=== PATIENT | male | born 1995 | race Caucasian/White ===

== ENCOUNTER 2018-12-07 12:21 | Emergency (ER) | payer OTHER ==
[~2018-12-07] VITALS: Ht 177.8 cm; Wt 63.5 kg
[2018-12-07] MEDS ORDERED: SERT100T PO (12:39)
[2018-12-07] MEDS ORDERED: DIVA500T2 PO (12:39)
[2018-12-07] MEDS ORDERED: IV NORMAL SALINE 1000ML BAG 1,000 ML IV ONE (12:45)
--- NOTE | 2018-12-07 12:50 | RAD ---
Single view of the chest. 12/07/2018 12:32 PM Indication: Altered mental status Comparison: None Findings: There is no focal consolidation. There is no pleural effusion or pneumothorax. The cardiomediastinal silhouette and pulmonary vasculature are within normal limits. No acute osseous abnormalities are seen. Impression: No evidence of acute cardiopulmonary process. Electronically signed by: Jesús Rush MD (12/07/2018 12:48 PM) [facility]
--- NOTE | 2018-12-07 13:05 | RAD ---
PQRS Compliance Statement: One or more of the following individualized dose reduction techniques were utilized for this examination: 1. Automated exposure control 2. Adjustment of the mA and/or kV according to patient size 3. Use of iterative reconstruction technique CT HEAD WITHOUT CONTRAST History: Seizure, altered mental status. Comparison: None. Procedure: Axial images are obtained of the head from the skull base through the vertex without IV contrast. Findings: The ventricles and sulci are normal for the patient's age. No mass-effect, midline shift, hemorrhage, extra-axial fluid collection, or obvious acute infarction is identified. Basilar cisterns are patent. Bone windows demonstrate no acute calvarial abnormality. The visualized paranasal sinuses are clear. Mastoid air cells are well aerated. IMPRESSION: No acute intracranial abnormality. Electronically signed by: Tuan Gordillo MD (12/07/2018 1:02 PM) [id number]
[2018-12-07 13:10] LABS: BILIRUBIN,URINE NEGATIVE (NEG); CLARITY,URINE CLEAR; COLOR,URINE YELLOW; NITRITE,URINE NEGATIVE (NEG); PH,URINE 5.5; PROTEIN,URINE NEGATIVE (NEG-TRACE); UROBILINOGEN,URINE 0.2 mg/dL (0.2 mg/dL)
[2018-12-07 13:12] LABS: BASO % 1 % (0-3); EOS # 0.1 x10^3/uL (0.0-0.7); EOS % 1 % (0-3); HEMATOCRIT 41.9 % (39.0-53.0); HEMOGLOBIN 14.6 g/dL (13.0-17.5); LYMPH # 2.6 x10^3/uL (1.0-4.8); LYMPH % 31 % (24-48); MEAN CORPUSCULAR HEMOGLOBIN 31 pg (25-35); MEAN CORPUSCULAR HGB CONC 35 g/dL (31-37); MEAN CORPUSCULAR VOLUME 90 fL (79-100); MONO # 0.6 x10^3/uL (0.0-1.1); MONO % 7 % (0-9); NEUT % 61 % (31-73); PLATELET COUNT 277 x10^3/uL (140-400); RED BLOOD COUNT 4.67 x10^6/uL (4.30-5.70); RED CELL DISTRIBUTION WIDTH 14.1 % (11.5-14.5); WHITE BLOOD COUNT 8.3 x10^3/uL (4.0-11.0)
[2018-12-07 13:17] LABS: BARBITURATES NEG (NEG); BENZODIAZEPINES NEG (NEG); CANNABINOIDS NEG (NEG); COCAINE NEG (NEG); METHADONE NEG (NEG); OPIATES POS (NEG); PHENCYCLIDINE NEG (NEG)
[2018-12-07 13:18] LABS: AMPHETAMINE/METHAMPHETAMINE NEG (NEG)
[2018-12-07 13:21] LABS: CALCIUM 9.3 mg/dL (8.5-10.1); CREATININE 0.9 mg/dL (0.7-1.3); GFR 103.7; POTASSIUM 4.4 mmol/L (3.5-5.1)
[2018-12-07 13:27] LABS: ACETAMIN < 2 mcg/ml (10-30); ETHANOL < 10 mg/dL (0-10); SALIC < 2.8 mg/dL (2.8-20.0)
[2018-12-07 13:28] LABS: ALBUMIN/GLOBULIN RATIO 1.2 (1.0-1.7); MAGNESIUM 2.2 mg/dL (1.8-2.4); TOTAL BILIRUBIN 0.4 mg/dL (0.2-1.0); TOTAL PROTEIN 7.4 g/dL (6.4-8.2)
[2018-12-07 13:34] LABS: RBC,URINE 0 /HPF (0-2); WBC,URINE OCC /HPF (0-4)
[2018-12-07 13:35] LABS: BACTERIA,URINE 0 /HPF (0-FEW); SQUAMOUS EPITHELIAL CELL,UR OCC /LPF
--- NOTE | 2018-12-07 13:47 | PHYS DOC ---
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 Patient works at [employer], he was at work today, he took a lunch break at 11:30 AM and return to work, his fellow employees noted he was altered. Patient is alert and oriented 1-2. He is restless. Review of Systems Review of Systems Constitutional: Denies fever or chills [] Eyes: Denies change in visual acuity, redness, or eye pain [] HENT: Denies nasal congestion or sore throat [] Respiratory: Denies cough or shortness of breath [] Cardiovascular: No additional information not addressed in HPI [] GI: Denies abdominal pain, nausea, vomiting, bloody stools or diarrhea [] : Denies dysuria or hematuria [] Musculoskeletal: Denies back pain or joint pain [] Integument: Denies rash or skin lesions [] Neurologic: Reports altered mental status. Denies headache, focal weakness or sensory changes [] All other systems were reviewed and found to be within normal limits, except as documented in this note. Current Medications Current Medications Current Medications Medications (Trade) Dose Ordered Sig/Rowan Start Time Stop Time Status Last Admin Dose Admin Divalproex Sodium (Depakote) 2,000 mg 1X ONCE 12/07/18 16:45 12/07/18 16:46 Sodium Chloride 1,000 ml @ 1,000 mls/hr 1X ONCE 12/07/18 12:45 12/07/18 13:44 DC 12/07/18 13:20 1,000 MLS/HR Allergies Allergies Allergies Coded Allergies Type Severity Reaction Last Updated Verified No Known Drug Allergies 12/07/18 No Physical Exam Physical Exam Constitutional: Well developed, well nourished, no acute distress, non-toxic appearance. [] HENT: Normocephalic, atraumatic, bilateral external ears normal, oropharynx moist, no oral exudates, nose normal. [] Eyes: PERRLA, EOMI, conjunctiva normal, no discharge. [] Neck: Normal range of motion, no tenderness, supple, no stridor. [] Cardiovascular: Tachycardic Lungs & Thorax: Bilateral breath sounds clear to auscultation [] Abdomen: Bowel sounds normal, soft, no tenderness, no masses, no pulsatile masses. [] Skin: Warm, dry, no erythema, no rash. Bruising noted on the left forehead. Back: No tenderness, no CVA tenderness. [] Extremities: No tenderness, no cyanosis, no clubbing, ROM intact, no edema. [] Neurologic: Alert and oriented X 2, normal motor function, normal sensory function, no focal deficits noted. Cranial nerves II through XII intact Psychologic: Restless, moving around in bed Current Patient Data Vital Signs Vital Signs Date Time Temp Pulse Resp B/P (MAP) Pulse Ox O2 Delivery O2 Flow Rate FiO2 12/07/18 12:21 98.4 129 20 157/80 (105) 98 Room Air 98.4 Lab Values Laboratory Tests Test 12/07/18 11:58 12/07/18 12:49 12/07/18 13:45 White Blood Count 8.3 x10^3/uL (4.0-11.0) Red Blood Count 4.67 x10^6/uL (4.30-5.70) Hemoglobin 14.6 g/dL (13.0-17.5) Hematocrit 41.9 % (39.0-53.0) Mean Corpuscular Volume 90 fL (79-100) Mean Corpuscular Hemoglobin 31 pg (25-35) Mean Corpuscular Hemoglobin Concent 35 g/dL (31-37) Red Cell Distribution Width 14.1 % (11.5-14.5) Platelet Count 277 x10^3/uL (140-400) Neutrophils (%) (Auto) 61 % (31-73) Lymphocytes (%) (Auto) 31 % (24-48) Monocytes (%) (Auto) 7 % (0-9) Eosinophils (%) (Auto) 1 % (0-3) Basophils (%) (Auto) 1 % (0-3) Neutrophils # (Auto) 5.0 x10^3/uL (1.8-7.7) Lymphocytes # (Auto) 2.6 x10^3/uL (1.0-4.8) Monocytes # (Auto) 0.6 x10^3/uL (0.0-1.1) Eosinophils # (Auto) 0.1 x10^3/uL (0.0-0.7) Basophils # (Auto) 0.0 x10^3/uL (0.0-0.2) Sodium Level 140 mmol/L (136-145) Potassium Level 4.4 mmol/L (3.5-5.1) Chloride Level 100 mmol/L (98-107) Carbon Dioxide Level 28 mmol/L (21-32) Anion Gap 12 (6-14) Blood Urea Nitrogen 17 mg/dL (8-26) Creatinine 0.9 mg/dL (0.7-1.3) Estimated GFR (Cockcroft-Gault) 103.7 BUN/Creatinine Ratio 19 (6-20) Glucose Level 148 mg/dL (70-99) H Calcium Level 9.3 mg/dL (8.5-10.1) Magnesium Level 2.2 mg/dL (1.8-2.4) Total Bilirubin 0.4 mg/dL (0.2-1.0) Aspartate Amino Transferase (AST) 35 U/L (15-37) Alanine Aminotransferase (ALT) 45 U/L (16-63) Alkaline Phosphatase 72 U/L (46-116) Creatine Kinase 389 U/L (39-308) H Creatine Kinase MB (Mass) 3.4 ng/mL (0.0-3.6) Creatine Kinase MB Relative Index 0.9 % (0-4) Troponin I Quantitative < 0.017 ng/mL (0.000-0.055) Total Protein 7.4 g/dL (6.4-8.2) Albumin 4.0 g/dL (3.4-5.0) Albumin/Globulin Ratio 1.2 (1.0-1.7) Lipase 110 U/L (73-393) Salicylates Level < 2.8 mg/dL (2.8-20.0) L Salicylate Last Dose Date Unknown Salicylate Last Dose Time Unknown Acetaminophen Level < 2 mcg/ml (10-30) L Acetaminophen Last Dose Date Unknown Acetaminophen Last Dose Time Unknown Valproic Acid Level 10 mcg/mL (50-100) L Valproic Acid Last Dose Date 12/06/18 Valproic Acid Last Dose Time 0900 Ethyl Alcohol Level < 10 mg/dL (0-10) Urine Collection Type Unknown Urine Color Yellow Urine Clarity Clear Urine pH 5.5 Urine Specific Tyler 1.020 Urine Protein Negative mg/dL (NEG-TRACE) Urine Glucose (UA) Negative mg/dL (NEG) Urine Ketones (Stick) Negative mg/dL (NEG) Urine Blood Negative (NEG) Urine Nitrite Negative (NEG) Urine Bilirubin Negative (NEG) Urine Urobilinogen Dipstick 0.2 mg/dL (0.2 mg/dL) Urine Leukocyte Esterase Negative (NEG) Urine RBC 0 /HPF (0-2) Urine WBC Occ /HPF (0-4) Urine Squamous Epithelial Cells Occ /LPF Urine Bacteria 0 /HPF (0-FEW) Urine Mucus Slight /LPF Urine Opiates Screen Pos (NEG) Urine Methadone Screen Neg (NEG) Urine Barbiturates Neg (NEG) Urine Phencyclidine Screen Neg (NEG) Urine Amphetamine/Methamphetamine Neg (NEG) Urine Benzodiazepines Screen Neg (NEG) Urine Cocaine Screen Neg (NEG) Urine Cannabinoids Screen Neg (NEG) Urine Ethyl Alcohol Neg (NEG) Lactic Acid Level 2.5 mmol/L (0.4-2.0) H Laboratory Tests 12/07/18 11:58 Laboratory Tests 12/07/18 11:58 EKG EKG 1312 interpreted by sinus tachycardia heart rate 123 no STEMI[] Radiology/Procedures Radiology/Procedures []PROCEDURE: PORTABLE CHEST 1V Single view of the chest. 12/07/2018 12:32 PM Indication: Altered mental status Comparison: None Findings: There is no focal consolidation. There is no pleural effusion or pneumothorax. The cardiomediastinal silhouette and pulmonary vasculature are within normal limits. No acute osseous abnormalities are seen. Impression: No evidence of acute cardiopulmonary process. Electronically signed by: Jesús Pace MD (12/07/2018 12:48 PM) [facility] DICTATED and SIGNED BY: JESÚS PACE MD DATE: 12/07/18 1248 PROCEDURE: CT HEAD WO CONTRAST PQRS Compliance Statement: One or more of the following individualized dose reduction techniques were utilized for this examination: 1. Automated exposure control 2. Adjustment of the mA and/or kV according to patient size 3. Use of iterative reconstruction technique CT HEAD WITHOUT CONTRAST History: Seizure, altered mental status. Comparison: None. Procedure: Axial images are obtained of the head from the skull base through the vertex without IV contrast. Findings: The ventricles and sulci are normal for the patient's age. No mass-effect, midline shift, hemorrhage, extra-axial fluid collection, or obvious acute infarction is identified. Basilar cisterns are patent. Bone windows demonstrate no acute calvarial abnormality. The visualized paranasal sinuses are clear. Mastoid air cells are well aerated. IMPRESSION: No acute intracranial abnormality. Electronically signed by: Tuan Gordillo MD (12/07/2018 1:02 PM) [id number] DICTATED and SIGNED BY: TUAN GORDILLO MD DATE: 12/07/18 1302 Course & Med Decision Making Course & Med Decision Making Pertinent Labs and Imaging studies reviewed. (See chart for details) This is a 23-year-old male patient presenting to the ED today to be evaluated for altered mental status. Patient was at work today, he went for lunch break around 11:30 and return to work and and was noted to be altered. He is currently alert and oriented 2. Very restless, moving around in bed. CT of the head is negative for any acute findings, EKG was noted for tachycardia which improved after IV fluids. CBC, CMP- no acute findings. Troponin is normal. Urine analysis negative for infection, UDS noted for opiates use. Lactic is 2.4-he likely had a seizure. Patient states he takes Depakote for his seizures. Depakote level noted at 10. He states he doesn't remember if he took the medicine this morning or not but he believes he did not. Depakote was given in the ED. Patient states he follows up with a local clinic for his seizure management specifically [facility]. Instructed to make sure he follows up tomorrow. Given urologist for follow-up as well. He has woken up more, is able to carry on conversations. He is in no distress. Requesting to be discharged to home. Dragon Disclaimer Dragon Disclaimer This electronic medical record was generated, in whole or in part, using a voice recognition dictation system. Departure Departure Impression: Primary Impression: Altered mental status Additional Impressions: Seizure disorder Opiate use Disposition: HOME, SELF-CARE Condition: LEFT WITHOUT BEING SEEN Referrals: KENNETH FLORES MD follow up in 1-2 days Patient Instructions: Confusion, Seizure, Adult Additional Instructions: You were evaluated in the emergency room for altered mental status, we suspect he had a seizure. Ensure you are taking your seizure medication. Please ensure you follow-up with your neurologist or primary care doctor tomorrow. Problem Qualifiers Primary Impression: Altered mental status Altered mental status type: unspecified Qualified Codes: R41.82 - Altered mental status, unspecified LITTLELAINEANTONIO SAGE Dec 07, 2018 13:47
--- NOTE | 2018-12-07 14:30 | EKG ---
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
[2018-12-07 15:08] LABS: VAL ACID 10 mcg/mL (50-100)
[2018-12-07 16:26] VITALS: BP 150/81
[2018-12-07] MEDS ORDERED: DIVALPROEX DELAYED RELEASE 500 MG TABLET.DR. PO ONE (16:45)
== END 2018-12-07 17:00 | disposition home or self-care (01) ==
LOC: ER 12:21
DX: R41.82 Altered mental status, unspecified (principal); G40.909 Epilepsy, unspecified, not intractable, without status epilepticus; F11.90 Opioid use, unspecified, uncomplicated; F32.9 Major depressive disorder, single episode, unspecified; F17.200 Nicotine dependence, unspecified, uncomplicated
CPT/HCPCS: 36415; 70450; 71045; 80053; 80164; 80177; 80307; 80329; 81001; 82553; 83605; 83690; 83735; 84484; 85025; 93005; 96360; 96361; 99285; G0480; J7030

== ENCOUNTER 2018-12-08 13:43 | Emergency (ER) | payer OTHER ==
[~2018-12-08] VITALS: Ht 177.8 cm; Wt 59.0 kg
[~2018-12-08 13:43] MED LIST: DIVA500T2 PO; SERT100T PO
--- NOTE | 2018-12-08 15:47 | PHYS DOC ---
Past Medical History Past Medical History: Depression, Seizure Past Surgical History: No Surgical History Alcohol Use: Rarely Drug Use: Heroin, Methamphetamine Adult General Chief Complaint Chief Complaint: SEIZURE HPI HPI Patient is a 23 year old male who presents to the emergency Department today with request for work excuse. Patient states he was evaluated here yesterday after having a seizure and when he tried to go back to work today [employer] they wanted him to have a work excuse or else he would be fired. Patient denies any continued headache, seizure activity today, nausea, vomiting, diarrhea, vision changes, confusion, or problems with coordination. He states he feels fatigued and his body aches but he attributes that to the seizure that he suffered yesterday. Patient declines evaluation of fatigue and body aches, states he is simply here for a work excuse so he does not lose his job. Review of Systems Review of Systems Constitutional: Denies fever or chills [] Eyes: Denies change in visual acuity, redness, or eye pain [] HENT: Denies nasal congestion or sore throat [] Respiratory: Denies cough or shortness of breath [] Cardiovascular: No additional information not addressed in HPI [] GI: Denies abdominal pain, nausea, vomiting, or diarrhea [] Musculoskeletal: See history of present illness Integument: Denies rash or skin lesions [] Neurologic: Denies headache, focal weakness or sensory changes [] Complete systems were reviewed and found to be within normal limits, except as documented in this note. Allergies Allergies Allergies Coded Allergies Type Severity Reaction Last Updated Verified No Known Drug Allergies 12/07/18 No Physical Exam Physical Exam Constitutional: Well developed, well nourished, no acute distress, non-toxic appearance. [] HENT: Normocephalic, atraumatic, bilateral external ears normal, nose normal. [] Eyes: PERRLA, EOMI, conjunctiva normal, no discharge. [] Neck: Normal range of motion, no stridor. [] Cardiovascular:Heart rate regular rhythm, no murmur [] Lungs & Thorax: Bilateral breath sounds clear to auscultation [] Skin: Warm, dry, no erythema, no rash. [] Extremities: No cyanosis, no clubbing, ROM intact, no edema. [] Neurologic: Alert and oriented X 3, normal motor function, normal sensory function, no focal deficits noted. [] Psychologic: Affect normal, judgement normal, mood normal. [] Current Patient Data Vital Signs Vital Signs Date Time Temp Pulse Resp B/P (MAP) Pulse Ox O2 Delivery O2 Flow Rate FiO2 12/08/18 16:00 73 16 99 12/08/18 14:14 97.9 126/81 (96) Room Air 97.9 EKG EKG [] Radiology/Procedures Radiology/Procedures [] Course & Med Decision Making Course & Med Decision Making Pertinent Labs and Imaging studies reviewed. (See chart for details) dx: encounter to obtain work excuse Pt states that he is only at the ER to get a work note so he does not lose his job. His only complaint was fatigue and generalized body aches, he refuses workup for these sx. Work excuse written for yesterday and today. Pt encouraged to go home to rest and to continue taking his seizure medication as prescribed. Patient verbalized an understanding of home care, medications, follow-up, and return to ED instructions and was in agreement with the plan of care. [] Dragon Disclaimer Dragon Disclaimer This electronic medical record was generated, in whole or in part, using a voice recognition dictation system. Departure Departure Impression: Primary Impression: Encounter to obtain excuse from work Referrals: NO PCP (PCP) Patient Instructions: Normal Exam in Emergency Department Additional Instructions: Continue taking your seizure medications as prescribed. Follow up with your neurologist and primary care doctor as instructed yesterday. Return to the ER if your symptoms worsen. JAYJAY PERAZA APRN Dec 08, 2018 15:47
[2018-12-08 16:00] VITALS: BP 113/58
== END 2018-12-08 16:04 | disposition home or self-care (01) ==
LOC: ER 13:43
DX: R53.83 Other fatigue (principal); M79.18 Myalgia, other site; R56.9 Unspecified convulsions; Z02.79 Encounter for issue of other medical certificate; F32.9 Major depressive disorder, single episode, unspecified
CPT/HCPCS: 99283

== ENCOUNTER 2020-09-01 12:24 | Emergency (ER) | payer SELFPAY ==
[~2020-09-01] VITALS: Ht 177.8 cm; Wt 66.0 kg
[2020-09-01 12:35] VITALS: BP 113/58
[2020-09-01] MEDS: HYDROcodone/APAP 5/325MG 1 TAB TABLET PO ONE (14:32)
[2020-09-01] MEDS: IBUPROFEN 200 MG TABLET. PO ONE (14:32)
--- NOTE | 2020-09-01 14:44 | RAD ---
XR FOREARM_RIGHT 2 VIEWS, XR RT WRIST 3VIEWS DATE: 09/01/2020 1:49 PM INDICATION: Pain, fall COMPARISON: None. FINDINGS: Acute comminuted fracture of the distal radius with intra-articular extension and approximately 5 mm volar displacement of a prominent articular surface fragment. Acute mildly displaced ulnar styloid fracture. Soft tissue swelling along the volar aspect of the wrist. IMPRESSION: 1. Acute comminuted and displaced distal radius fracture involving the articular surface. 2. Acute displaced ulnar styloid fracture. Electronically signed by: Brian Hodge MD (09/01/2020 2:42 PM) [id number]
--- NOTE | 2020-09-01 15:04 | PHYS DOC ---
Past Medical History Past Medical History: Depression, Seizure Past Surgical History: No Surgical History Smoking Status: Current Every Day Smoker Alcohol Use: None Drug Use: Heroin, Methamphetamine Social History Narrative: SOBER X 7 MONTHS General Adult EDM: Chief Complaint: WRIST PAIN HPI: HPI: Patient is a 25 year old male who presents with was skateboarding today when he fell and landed on his right arm. There is deformity and swelling noted at the right wrist. He does not have range of motion of the wrist but can wiggle his fingers. He denies loss of sensation or coolness to the extremity. He rates his pain a 9 out of 10. He did recently get off heroin. Review of Systems: Review of Systems: Constitutional: Denies fever or chills. [] Eyes: Denies change in visual acuity. [] HENT: Denies nasal congestion or sore throat. [] Respiratory: Denies cough or shortness of breath. [] Cardiovascular: Denies chest pain. + Right wrist 3+edema. [] GI: Denies abdominal pain, nausea, vomiting, bloody stools or diarrhea. [] : Denies dysuria. [] Musculoskeletal: Denies back pain. + Right wrist joint pain. [] Integument: Denies rash. [] Neurologic: Denies headache, focal weakness or sensory changes. [] Endocrine: Denies polyuria or polydipsia. [] Lymphatic: Denies swollen glands. [] Psychiatric: Denies depression or anxiety. [] Heart Score: C/O Chest Pain: No Risk Factors: Risk Factors: DM, Current or recent (<one month) smoker, HTN, HLP, family history of CAD, obesity. Risk Scores: Score 0 - 3: 2.5% MACE over next 6 weeks - Discharge Home Score 4 - 6: 20.3% MACE over next 6 weeks - Admit for Clinical Observation Score 7 - 10: 72.7% MACE over next 6 weeks - Early Invasive Strategies Current Medications: Current Medications Medications (Trade) Dose Ordered Sig/Rowan Start Time Stop Time Status Last Admin Dose Admin Acetaminophen/ Hydrocodone Bitart (Lortab 5/325) 1 tab 1X ONCE 09/01/20 14:30 09/01/20 14:31 DC 09/01/20 14:32 1 TAB Ibuprofen (Motrin) 600 mg 1X ONCE 09/01/20 14:30 09/01/20 14:31 DC 09/01/20 14:32 600 MG Allergies: Allergies: Allergies Coded Allergies Type Severity Reaction Last Updated Verified No Known Drug Allergies 12/07/18 No Physical Exam: PE: Constitutional: Well developed, well nourished, no acute distress, non-toxic appearance. [] HENT: Normocephalic, atraumatic, bilateral external ears normal, oropharynx moist, no oral exudates, nose normal. [] Eyes: PERRLA, EOMI, conjunctiva normal, no discharge. [] Neck: Normal range of motion, no tenderness, supple, no stridor. [] Cardiovascular:Heart rate regular rhythm, no murmur [] Lungs & Thorax: Bilateral breath sounds clear to auscultation [] Abdomen: Bowel sounds normal, soft, no tenderness, no masses, no pulsatile masses. [] Skin: Warm, dry, no erythema, no rash. [] Back: No tenderness, no CVA tenderness. [] Extremities: Right wrist tenderness, no cyanosis, no clubbing, right wrist ROM not intact, right wrist 3+ edema. [] Neurologic: Alert and oriented X 3, normal motor function, normal sensory function, no focal deficits noted. [] Psychologic: Affect normal, judgement normal, mood normal. [] Current Patient Data: Vital Signs: Vital Signs Date Time Temp Pulse Resp B/P (MAP) Pulse Ox O2 Delivery O2 Flow Rate FiO2 09/01/20 14:32 16 09/01/20 12:35 98.7 89 113/58 (76) 98 Room Air 98.7 EKG: EKG: [] Radiology/Procedures: Radiology/Procedures: [] Impression: [facility] [address] [place] [address] IMAGING REPORT Signed PATIENT: CHELA PALMA ACCOUNT: [id number] : 1995 LOCATION: ER AGE: 25 SEX: M EXAM STATUS: REG ER ORD. PHYSICIAN: ARCADIO MCHUGH APRN REASON: fall from skateboard today, right wrist pain/swelling PROCEDURE: WRIST 3V RIGHT XR FOREARM_RIGHT 2 VIEWS, XR RT WRIST 3VIEWS DATE: 09/01/2020 1:49 PM INDICATION: Pain, fall COMPARISON: None. FINDINGS: Acute comminuted fracture of the distal radius with intra-articular extension and approximately 5 mm volar displacement of a prominent articular surface fragment. Acute mildly displaced ulnar styloid fracture. Soft tissue swelling along the volar aspect of the wrist. IMPRESSION: 1. Acute comminuted and displaced distal radius fracture involving the articular surface. 2. Acute displaced ulnar styloid fracture. Electronically signed by: Christine Messina MD (09/01/2020 2:42 PM) [id number] DICTATED and SIGNED BY: CHRISTINE MESSINA MD DATE: 09/01/20 [id number] Course & Med Decision Making: Course & Med Decision Making Pertinent Labs and Imaging studies reviewed. (See chart for details) See HPI. Right radial pulses strong and present. Skin pink warm and dry. He can wiggle all of his fingers. Cap refill less than 2 seconds. Right wrist 2- 3+ swelling. No bruising at this time. There is tenderness to the whole wrist area. Patient is given 1 [place] in the ED. I have spoken to states that it will likely have to be surgically repaired and he will see him when the office as outpatient on Friday. He states to place the patient in a sugar tong. Splint assessment: Neurovascularly intact post splint replacement with good fit. Patient's extremity symptoms have stabilized well they have been evaluated in the department and are appropriate for outpatient follow-up. No evidence of compartment syndrome, neurologic injury, vascular injury, open joint, open fracture, tendon laceration, or foreign body. IMPRESSION: 1. Acute comminuted and displaced distal radius fracture involving the articular surface. 2. Acute displaced ulnar styloid fracture. [] Dragon Disclaimer: Zhang Disclaimer: This electronic medical record was generated, in whole or in part, using a voice recognition dictation system. Departure Departure Impression: Primary Impression: Distal radial fracture Qualified Codes: S52.501A - Unspecified fracture of the lower end of right radius, initial encounter for closed fracture Disposition: 01 DC HOME SELF CARE/HOMELESS Condition: STABLE Referrals: NO PCP (PCP) MARC FOX DO Patient Instructions: Radial Fracture Additional Instructions: Follow-up with orthopedics by calling Friday and they stated they can see you on Friday. Take ibuprofen or pain medication as prescribed. Use ice and elevation to help with pain and swelling. If at any point your fingers start to turn purple or your hand goes numb you can return to the emergency room. Scripts Ibuprofen (IBUPROFEN) 600 Mg Tablet 600 MG PO PRN Q6HRS PRN for INFLAMMATION, #24 TAB Prov: ARCADIO MCHUGH OUTBOARD TECHNICIAN 09/01/20 Hydrocodone Bit/Acetaminophen (HYDROCODONE-APAP 5-325 ) 1 Tab Tablet 1 TAB PO PRN Q6HRS PRN for PAIN, #4 TAB 0 Refills Prov: ARCADIO MCHUGH OUTBOARD TECHNICIAN 09/01/20 ARCADIO MCHUGH APRN Sep 01, 2020 15:03
[2020-09-01] MEDS ORDERED: HYDR-2761 PO (15:35)
[2020-09-01] MEDS ORDERED: IBUP-1007 PO (15:35)
== END 2020-09-01 16:25 | disposition home or self-care (01) ==
LOC: ER 12:24
DX: S52.591A Other fractures of lower end of right radius, initial encounter for closed fracture (principal); S52.611A Displaced fracture of right ulna styloid process, initial encounter for closed fracture; M25.531 Pain in right wrist; R60.0 Localized edema; F32.9 Major depressive disorder, single episode, unspecified; F17.200 Nicotine dependence, unspecified, uncomplicated; F19.10 Other psychoactive substance abuse, uncomplicated; F15.90 Other stimulant use, unspecified, uncomplicated; W18.39XA Other fall on same level, initial encounter; Y93.89 Activity, other specified; Y92.89 Other specified places as the place of occurrence of the external cause; Y99.8 Other external cause status
CPT/HCPCS: 29125; 73090; 73110; 99284; A4565

== ENCOUNTER 2020-09-07 11:55 | Day surgery (SDC) | payer SELFPAY ==
[~2020-09-07] VITALS: Ht 177.8 cm; Wt 63.5 kg
[~2020-09-07 11:55] MED LIST changes: +DEXAMETHASONE SOD PHOS 4 MG/ML VIAL ONE; +HYDR-2761 PO; +HYDROmorphone 2 MG/ML VIAL IVP PRN; +IBUP-1007 PO; +IV RINGERS,LACTATED 1000ML 1,000 ML IV SCH; +LIDOCAINE 2% PF 5 ML VIAL. ONE; +MIDAZOLAM HCL/PF 2 MG/2 ML VIAL. ONE; +MORPHINE SULFATE 2 MG/ML VIAL. IVP PRN; +ONDANSETRON PF 4 MG/2 ML VIAL. ONE; +PROCHLORPERAZINE 10 MG/2 ML VIAL. IVP PRN; +PROPOFOL 10 MG/ML (20ML) VIAL. IV ONE; +SEVOFLURANE 61 TO 120 MINUTES. IH ONE; +fentaNYL PF VIAL 100 MCG/2 ML VIAL IVP PRN; +fentaNYL PF VIAL 100 MCG/2 ML VIAL ONE
[2020-09-07] MEDS ORDERED: BUPIVACAINE-EPI 0.25% 30 ML VIAL KIT. ONE (12:08)
--- NOTE | 2020-09-07 13:06 | NUR ---
PT HERE IN [facility] FOR RIGHT WRIST SURGERY. PT WAS TESTED FOR COVID-19 ON July @10:50AM. PT HAD POSITIVE TEST RESULTS ON HIS PHONE DOS BUT WAS NOT ABLE TO COPY FROM PHONE OR OBTAIN HARDCOPY. TEST WAS DONE AT [facility] IN [place], [place]. PT SHOWED RN THE PICTURE OF TEST RESULTS FORM HIS PHONE. HE ALSO STATED HE DID NOT HAVE ANY SYMPTOMS OF THE VIRUS BACK IN JULY AND WAS NOT HOSPITALIZED
[2020-09-07] MEDS ORDERED: PROPOFOL 10 MG/ML (20ML) VIAL. IV ONE (13:12)
--- NOTE | 2020-09-07 14:05 | DISCH ---
DISCHARGE INSTRUCTIONS Condition on Discharge Condition on Discharge: Stable Activity After Discharge Activity Instructions for Disc: Progressive ambulation Bathing Instructions: No Tub Bath until see Lifting Instructions after Dis: No heavy lifting Weight Bearing Status after Di: Non weight bearing Diet after Discharge Diet after Discharge: Regular Wound Incision Care Wound/Incision Care: Keep wound/cast CDI Contacting the DRReynold after DC Call your doctor for: Concerns you may have Treatment/Equipment after DC Adaptive Equipment Issued: None MARC FOX DO Sep 07, 2020 14:05
[2020-09-07] MEDS: fentaNYL PF VIAL 100 MCG/2 ML VIAL IVP PRN ×2 (14:15→14:23)
--- NOTE | 2020-09-07 14:17 | PDOC4 ---
OPERATIVE NOTE: PRE-OPERATIVE DIAGNOSIS: RIGHT DISTAL RADIUS FRACTURE POST-OP DIAGNOSIS: SAME TITLE OF OPERATION: RIGHT DISTAL RADIUS ORIF SURGEON: MARC FOX DO/LISETH ASSISTANTS: NONE OPERATIVE INDICATIONS: 25 YEAR MALE WITH RIGHT WRIST PAIN AFTER FALL OF SKATEBOARD. RADIOGRAPHS DEMONSTRATED A DISPLACED DISTAL RADIUS FRACTURE. WE DISCUSSED THE R/B/A TO SURGERY. HE DEMONSTRATED UNDERSTANDING AND WISHED TO PROCEED WITH SURGERY. OPERATIVE TECHNIQUE: PATIENT WAS TAKEN BACK TO SURGERY ROOM NUMBER 3 AND PLACED ON THE OR TABLE IN THE SUPINE POSITION. HE WAS THEN ADMINISTERED A GENERAL ANESTHETIC. THE RIGHT UPPER EXTREMITY WAS THEN STERILELY PREPPED AND DRAPED. SURGERY BEGAN BY MAKING A STANDARD VOLAR INCISION FOR DISTAL RADIUS SURGERY. THE FCR TENDON SHEATH WAS SHARPLY INCISED. IT WAS THEN RETRACTED ULNARLY. THE FASCIA OF THE FPL WAS THEN SHARPLY OPENED. A SELF RETAINING RETRACTOR WAS PLACED IN THE WOUND. THE QUADRATUS WAS THEN ELEVATED OFF THE DISTAL RADIUS SUBPERIOSTEALLY. THE FRACTURE SITE WAS THEN DEBRIDED OF FRACTURE HEMATOMA. A REDUCTION WAS PERFORMED AND TEMPORARY PIN FIXATION WAS USED TO SECURE THE FRACTURE. A VOLAR PLATE WAS THEN PLACED ON THE BONE AND FIXATED USING A 2.4MM CORTICAL SCREW. THE FLUOROSCOPE WAS THEN USED TO CHECK PLATE POSITION. THE DISTAL ROW WAS THEN FILLED WITH 2.4MM LOCKING SCREWS. THE WOUND WAS THOROUGHLY IRRIGATED. THE SUBQ TISSUES WERE CLOSED USING A 3-0 VICRYL SUTURE AND THE SKIN WAS CLOSED WITH A RUNNING SUBQ PROLENE. LOCAL ANESTHETIC WAS THEN INJECTED. STERILE DRESSINGS WERE PLACED AND HE WAS PLACED INTO A VOLAR SPLINT. HE WAS THEN AWAKEN FROM GENERAL ANESTHESIA. CONDITION: STABLE SPECIMENS: NONE COMPLICATIONS: NONE DISPO: PACU, THEN HOME. MARC FOX DO Sep 07, 2020 14:17
[2020-09-07] MEDS ORDERED: OXYC1TAB15 PO (14:18)
[2020-09-07] MEDS: MORPHINE SULFATE 2 MG/ML VIAL. IVP PRN ×2 (14:37→14:47)
[2020-09-07] MEDS ORDERED: oxyCODONE/APAP 5/325 1 TAB TABLET PO ONE (14:45)
[2020-09-07] MEDS ORDERED: oxyCODONE/APAP 5/325 1 TAB TABLET ONE (14:46)
[2020-09-07 15:03] VITALS: BP 143/86
== END 2020-09-07 15:30 | disposition home or self-care (01) ==
LOC: SURG 11:55
PROVIDERS: ATTEND Orthopaedic Surgery
DX: S52.501A Unspecified fracture of the lower end of right radius, initial encounter for closed fracture (principal); F32.9 Major depressive disorder, single episode, unspecified; F17.210 Nicotine dependence, cigarettes, uncomplicated; Z79.899 Other long term (current) drug therapy; Z72.89 Other problems related to lifestyle; Z98.890 Other specified postprocedural states; X58.XXXA Exposure to other specified factors, initial encounter; Y93.89 Activity, other specified; Y92.89 Other specified places as the place of occurrence of the external cause; Y99.8 Other external cause status
CPT/HCPCS: 25607; A4364; A4565; A4930; A6402; A6449; C1713; J0690; J1100; J2250; J2270; J2405; J2704; J3010; A4452